=== PATIENT | male | born 1990 | race Caucasian/White ===

== ENCOUNTER 2021-08-12 16:43 | Outpatient (CLI) | payer BC, SELFPAY ==
[2021-08-12 17:52] LABS: SARS-CoV-2 RNA PCR Positive (Negative)
== END 2021-08-12 16:44 | disposition home or self-care (01) ==
LOC: CHSLAB 16:49
PROVIDERS: PCP Internal Medicine; Visit Provider Internal Medicine
DX: U07.1 COVID-19 (principal); J06.9 Acute upper respiratory infection, unspecified
CPT/HCPCS: C9803; U0003; U0005